=== PATIENT | male | born 1995 | race African-American/Black ===

== ENCOUNTER 2017-11-09 13:34 | Emergency (ER) | payer SELFPAY ==
[~2017-11-09] VITALS: Ht 180.3 cm; Wt 70.4 kg
[2017-11-09 13:48] VITALS: BP 128/61; PULSE 80; RESP 18; TEMP 97.5; O2SAT 100
[2017-11-09] MEDS ORDERED: SODIUM CHLOR 0.9% 1000 ML INJ 1,000 ML IV ONE (14:00)
[2017-11-09 14:19] VITALS: BP 128/61; PULSE 59; RESP 18; O2SAT 99
[2017-11-09] MEDS ORDERED: PANTOPRAZOLE SODIUM 40 MG VIAL IV PUSH ONE (14:30)
[2017-11-09] MEDS ORDERED: ATROPINE/SCOPOLAM/HYOSCYAM/PB ELIXIR 10 ML CUP PO ONE (14:30)
[2017-11-09] MEDS ORDERED: ALUMINUM/MAGNESIUM/SIMETH 30 ML CUP PO ONE (14:30)
--- NOTE | 2017-11-09 14:39 | PD ---
HPI Chief Complaint: Chest Pain Time Seen by Provider: 13:49 Travel History International Travel<30 days: No Contact w/Intl Traveler<30days: No Traveled to known affect area: No History of Present Illness HPI 22-year-old male complains abdominal pain, left-sided chest pain, nausea vomiting. Patient states that he started having abdominal cramping with nausea vomiting since this morning. Patient states that the abdominal pain resolved completely and now he had intermittent nausea vomiting. Patient states that he started having left-sided chest pain this afternoon. Patient states the pain and cramping pain localized to left chest. Patient denies any pain radiation. Patient denies palpitation. Patient denies diaphoresis. Patient denies history of CAD. Patient has history of peptic ulcer disease. Patient is not on any medication right now. EMS was called. Patient was found to have hypoglycemia. Blood sugar was 37. Patient was given D10 IV on the way to ED. Patient also was given Zofran IV on the way to the ED. Patient denies alcohol or drug abuse. Patient denies history hypertension, diabetes, hyperlipidemia. PFSH Past Medical History Ulcer: Yes Past Surgical History Surgical History: No Previous Surgery Social History Alcohol Use: Yes (OCC) Tobacco Use: Yes Substance Use: No Allergies-Medications (Allergen,Severity, Reaction): Coded Allergies: penicillin G (Verified Allergy, Severe, Anaphylaxis, 11/09/17) Review of Systems General / Constitutional: No: Fever Eyes: No: Visual changes HENT: No: Headaches Cardiovascular: Positive: Chest Pain or Discomfort Respiratory: No: Shortness of Breath Gastrointestinal: Positive: Nausea, Vomiting, Abdominal Pain Genitourinary: No: Dysuria Musculoskeletal: No: Pain Skin: No Rash Neurologic: No: Weakness Psychiatric: No: Depression Endocrine: No: Polydipsia Hematologic/Lymphatic: No: Easy Bruising Physical Exam Narrative GENERAL: Well-nourished, well-developed patient. SKIN: Focused skin assessment warm/dry. HEAD: Normocephalic. EYES: No scleral icterus. No injection or drainage. NECK: Supple, trachea midline. No JVD or lymphadenopathy. CARDIOVASCULAR: Regular rate and rhythm without murmurs, gallops, or rubs. RESPIRATORY: Breath sounds equal bilaterally. No accessory muscle use. GASTROINTESTINAL: Abdomen soft, nondistended. Patient has mild tenderness on palpation epigastric area. No rebound tenderness. No mass. MUSCULOSKELETAL: No cyanosis, or edema. BACK: Nontender without obvious deformity. No CVA tenderness. Neurologic exam normal. Data Data Last Documented VS Vital Signs Date Time Temp Pulse Resp B/P (MAP) Pulse Ox O2 Delivery O2 Flow Rate FiO2 11/09/17 14:19 59 18 99 Room Air 11/09/17 13:48 97.5 Orders Orders Electrocardiogram (11/09/17 13:53) Complete Blood Count With Diff (11/09/17 13:53) Comprehensive Metabolic Panel (11/09/17 13:53) Creatine Kinase (Cpk) (11/09/17 13:53) Troponin I (11/09/17 13:53) Prothrombin Time / Inr (Pt) (11/09/17 13:53) Act Partial Throm Time (Ptt) (11/09/17 13:53) Lipase (11/09/17 13:53) Chest, Single Ap (11/09/17 13:53) Iv Access Insert/Monitor (11/09/17 13:53) Ecg Monitoring (11/09/17 13:53) Oximetry (11/09/17 13:53) Sodium Chlor 0.9% 1000 Ml Inj (Ns 1000 M (11/09/17 14:00) Pantoprazole Inj (Protonix Inj) (11/09/17 14:30) Al-Mag Hy-Si 40-40-4 Mg/Ml Liq (Mag-Al P (11/09/17 14:30) Acepi-Lgpkfo-Evqvum-Pb Liq ( Liq (11/09/17 14:30) Ct Abd/Pel W Iv Contrast(Rout) (11/09/17 14:37) Ed Discharge Order (11/09/17 15:36) Labs Laboratory Tests Test 11/09/17 14:23 White Blood Count 19.5 TH/MM3 Red Blood Count 4.80 MIL/MM3 Hemoglobin 14.5 GM/DL Hematocrit 42.1 % Mean Corpuscular Volume 87.6 FL Mean Corpuscular Hemoglobin 30.1 PG Mean Corpuscular Hemoglobin Concent 34.4 % Red Cell Distribution Width 13.1 % Platelet Count 169 TH/MM3 Mean Platelet Volume 9.6 FL Neutrophils (%) (Auto) 90.2 % Lymphocytes (%) (Auto) 4.5 % Monocytes (%) (Auto) 4.9 % Eosinophils (%) (Auto) 0.2 % Basophils (%) (Auto) 0.2 % Neutrophils # (Auto) 17.6 TH/MM3 Lymphocytes # (Auto) 0.9 TH/MM3 Monocytes # (Auto) 0.9 TH/MM3 Eosinophils # (Auto) 0.0 TH/MM3 Basophils # (Auto) 0.0 TH/MM3 CBC Comment DIFF FINAL Differential Comment Blood Urea Nitrogen 16 MG/DL Creatinine 1.21 MG/DL Random Glucose 174 MG/DL Total Protein 7.9 GM/DL Albumin 4.5 GM/DL Calcium Level 8.0 MG/DL Alkaline Phosphatase 67 U/L Aspartate Amino Transf (AST/SGOT) 66 U/L Alanine Aminotransferase (ALT/SGPT) 56 U/L Total Bilirubin 0.5 MG/DL Sodium Level 140 MEQ/L Potassium Level 3.8 MEQ/L Chloride Level 105 MEQ/L Carbon Dioxide Level 20.1 MEQ/L Anion Gap 15 MEQ/L Estimat Glomerular Filtration Rate 90 ML/MIN Total Creatine Kinase 195 U/L Troponin I LESS THAN 0.02 NG/ML Lipase 80 U/L MDM Medical Decision Making Medical Screen Exam Complete: Yes Emergency Medical Condition: Yes Interpretation(s) Last Impressions Chest X-Ray 11/09/17 1353 Signed Impressions: Service Date/Time: Thursday, November 09, 2017 14:14 - CONCLUSION: No acute disease. Nakul Andersen MD CBC with WBC 19.5. 19 neutrophil. CMP with glucose of 174. Cardiac enzymes are normal. Differential Diagnosis Differential diagnoses including gastritis, PUD, pancreatitis, cholecystitis, colitis, UTI, pyelonephritis, nephrolithiasis, musculoskeletal, angina, TX, PE, pneumothorax. Narrative Course 32-year-old male with left-sided chest pain and epigastric abdominal pain. Normal saline solution 1 L IV bolus. Protonix 40 mg IV. Maalox 30 cc p.o. 10 cc p.o. 3:40 PM. Patient states that he is pain-free and wants to go home. Does not want a CT of the abdomen and pelvis or further workup. Diagnosis Primary Impression: Atypical chest pain Additional Impressions: Abdominal pain Qualified Codes: R10.13 - Epigastric pain Gastritis Qualified Codes: K29.00 - Acute gastritis without bleeding Patient Instructions: General Instructions Additional Instructions: Take medications as directed. Follow-up with local physician. Med/Other Pt SpecificInfo: Prescription(s) given Scripts Dicyclomine (Bentyl) 10 Mg Cap 10 MG PO TID Y for Bowel Management, #21 CAP 0 Refills Prov: Haile Price MD 11/09/17 Sucralfate (Carafate) 1 Gram Tab 1 GM PO QID for Ulcer Prevention, #120 TAB 0 Refills On empty stomach Prov: Haile Price MD 11/09/17 Pantoprazole (Protonix) 40 Mg Tab 40 MG PO DAILY for Reflux, #30 TAB 0 Refills Prov: Haile Price MD 11/09/17 Disposition: 01 DISCHARGE HOME Condition: Stable Haile Price MD Nov 09, 2017 14:39
[2017-11-09 14:45] LABS: AUTOMATED NEUTROPHIL # 17.6 TH/MM3 (1.8-7.7); BASOPHIL % 0.2 % (0.0-2.0); EOSINOPHIL % 0.2 % (0.0-4.0); HEMATOCRIT 42.1 % (39.0-51.0); HEMOGLOBIN 14.5 GM/DL (13.0-17.0); LYMPH % 4.5 % (9.0-44.0); LYMPHOCYTE # 0.9 TH/MM3 (1.0-4.8); MEAN CELL VOLUME 87.6 FL (80.0-100.0); MEAN CORPUSCULAR HEMOGLOBIN 30.1 PG (27.0-34.0); MEAN CORPUSCULAR HGB CONC 34.4 % (32.0-36.0); MEAN PLATELET VOLUME 9.6 FL (7.0-11.0); MONO % 4.9 % (0.0-8.0); MONOCYTE # 0.9 TH/MM3 (0-0.9); NEUT % 90.2 % (16.0-70.0); PLATELET COUNT 169 TH/MM3 (150-450); RED CELL DISTRIBUTION WIDTH 13.1 % (11.6-17.2); WHITE BLOOD COUNT 19.5 TH/MM3 (4.0-11.0)
[2017-11-09 14:57] LABS: ALBUMIN 4.5 GM/DL (3.4-5.0); ALT (GPT) 56 U/L (12-78); AST (GOT) 66 U/L (15-37); BICARBONATE 20.1 MEQ/L (21.0-32.0); BLOOD UREA NITROGEN 16 MG/DL (7-18); CHLORIDE 105 MEQ/L (98-107); CREATININE 1.21 MG/DL (0.60-1.30); GLOMERULAR FILTRATION RATE 90 ML/MIN (>89); GLUCOSE,RANDOM 174 MG/DL (74-106); SODIUM (NA) 140 MEQ/L (136-145)
[2017-11-09 15:01] LABS: ALKALINE PHOSPHATASE 67 U/L (45-117); TOTAL BILIRUBIN ADULT 0.5 MG/DL (0.2-1.0); TOTAL PROTEIN 7.9 GM/DL (6.4-8.2); TROPONIN I LESS THAN 0.02 NG/ML (0.02-0.05)
--- NOTE | 2017-11-09 15:15 | RADRPT ---
EXAM DATE/TIME: 11/09/2017 14:14 [facility] COMPARISON: No previous studies available for comparison. INDICATIONS : Chest pain, shortness of breath, nausea, vomiting. MEDICAL HISTORY : None. SURGICAL HISTORY : None. ENCOUNTER: Initial ACUITY: 1 day PAIN SCORE: 6/10 LOCATION: Left chest FINDINGS: A single view of the chest demonstrates the lungs to be symmetrically aerated without evidence of mas s, infiltrate or effusion. The cardiomediastinal contours are unremarkable. Osseous structures are intact. CONCLUSION: No acute disease. Nakul Andersen MD on November 09, 2017 at 15:12 Board Certified Radiologist. This report was verified electronically.
[2017-11-09] MEDS ORDERED: CARA1TAB6 PO (15:47)
[2017-11-09] MEDS ORDERED: PROT40TA PO (15:47)
[2017-11-09] MEDS ORDERED: DICY10 PO (15:47)
--- NOTE | 2017-11-10 21:22 | EKG ---
Date Performed: 11/09/2017 Time Performed: 14:39:25 PTAGE: 22 years EKG: Sinus rhythm WITH MARKED SINUS ARRHYTHMIA POSSIBLE LEFT ATRIAL ENLARGEMENT MARKED RIGHT AXIS DEVIATION INCOMPLETE RIGHT BUNDLE BRANCH BLOCK ABNORMAL ECG NO PREVIOUS TRACING DOCTOR: Bernardo Laguna Interpretating Date/Time 11/10/2017 21:21:25
== END 2017-11-09 16:02 | disposition home or self-care (01) ==
LOC: NEPC 13:34
DX: R07.89 Other chest pain (principal); K29.00 Acute gastritis without bleeding; E16.2 Hypoglycemia, unspecified; R94.31 Abnormal electrocardiogram [ECG] [EKG]; Z87.11 Personal history of peptic ulcer disease; Z72.0 Tobacco use
CPT/HCPCS: 71045; 80053; 82550; 83690; 84484; 85025; 93005; 96374; 99285; C9113; J7030